=== PATIENT | male | born 1990 | race American Indian/Alaskan Native ===

== ENCOUNTER 2016-11-20 07:00 | Emergency (ER) | payer SELFPAY ==
[2016-11-20 07:40] VITALS: BP 116/72
[2016-11-20] MEDS ORDERED: BICILLIN L-A IM ONE (08:24)
--- NOTE | 2016-11-20 08:29 | Emergency Department Report ---
ED ENT HPI - General Chief complaint: Dental/Oral Stated complaint: TOOTHACHE Time Seen by Provider: 11/20/16 08:10 Source: patient Mode of arrival: Ambulatory Limitations: No Limitations - History of Present Illness MD complaint: tooth pain -: Sudden Location: other (lower molar) Quality: aching Consistency: constant Improves with: none Worsens with: eating Context- Dental: history of dental caries, other (tem filling while in longterm in jul) Associated Symptoms: fever (low grade), gum swelling, toothache. denies: cough , pain with swallowing, sore throat, tinnitus, hearing loss, discharge from ear , rhinorrhea - Related Data Previous Rx's Medication Instructions Recorded Last Taken Type Amoxicillin 500 mg PO BID #20 capsule 11/20/16 Unknown Rx traMADol [Ultram] 50 mg PO Q6HR PRN #12 tablet 11/20/16 Unknown Rx Allergies Allergy/AdvReac Type Severity Reaction Status Date / Time shellfish derived Allergy Swelling Verified 11/20/16 07:37 ED Dental HPI - General Chief complaint: Dental/Oral Stated complaint: TOOTHACHE Time Seen by Provider: 11/20/16 08:10 Source: patient Mode of arrival: Ambulatory Limitations: No Limitations - Related Data Previous Rx's Medication Instructions Recorded Last Taken Type Amoxicillin 500 mg PO BID #20 capsule 11/20/16 Unknown Rx traMADol [Ultram] 50 mg PO Q6HR PRN #12 tablet 11/20/16 Unknown Rx Allergies Allergy/AdvReac Type Severity Reaction Status Date / Time shellfish derived Allergy Swelling Verified 11/20/16 07:37 ED Review of Systems ROS: Stated complaint: TOOTHACHE Other details as noted in HPI Comment: All other systems reviewed and negative Constitutional: no symptoms reported Eyes: as per HPI ENT: as per HPI, dental pain (numerous fillings r lower molar area. no ludwigs. no abscess. mild fever. recent temp filling. has not fu w dmd). denies: ear pain, throat pain, hearing loss, epistaxis Respiratory: no symptoms reported Cardiovascular: as per HPI Endocrine: no symptoms reported Gastrointestinal: as per HPI Genitourinary: as per HPI Musculoskeletal: as per HPI Skin: as per HPI Neurological: as per HPI Psychiatric: as per HPI Hematological/Lymphatic: as per HPI ED Past Medical Hx - Past Medical History Previous Medical History?: No - Surgical History Past Surgical History?: No - Social History Smoking Status: Former Smoker Substance Use Type: Alcohol - Medications Home Medications: Home Medications Medication Instructions Recorded Confirmed Last Taken Type Amoxicillin 500 mg PO BID #20 capsule 11/20/16 Unknown Rx traMADol [Ultram] 50 mg PO Q6HR PRN #12 tablet 11/20/16 Unknown Rx ED Physical Exam - General Limitations: No Limitations - Head Head exam: Present: atraumatic - Eye Eye exam: Present: normal appearance Pupils: Present: normal accommodation - ENT ENT exam: Present: normal exam, normal orophraynx, mucous membranes moist, other (dental caries r lower. no ludwigs no abscress) - Neck Neck exam: Present: normal inspection - Respiratory Respiratory exam: Present: normal lung sounds bilaterally - Cardiovascular Cardiovascular Exam: Present: regular rate, normal rhythm, tachycardia (mild w mild fever) - GI/Abdominal GI/Abdominal exam: Present: soft - Rectal Rectal exam: Present: deferred - Extremities Exam Extremities exam: Present: normal inspection - Back Exam Back exam: Present: normal inspection - Neurological Exam Neurological exam: Present: alert, altered, oriented X3 - Psychiatric Psychiatric exam: Present: normal affect ED Course Vital Signs 11/20/16 07:38 Temperature 99.7 F H Pulse Rate 93 H Respiratory 16 Rate Blood Pressure 116/72 O2 Sat by Pulse 100 Oximetry ED Medical Decision Making - Medical Decision Making known dental caries temp filling w no follow up r molar, 3 noted fillings no abscess no ludwigs mild fever and hr 93 non toxic appearing discussed dmd IM bicillin and toradol for pain/fever HR on exam 90. Critical care attestation.: If time is entered above; I have spent that time in minutes in the direct care of this critically ill patient, excluding procedure time. ED Disposition Clinical Impression: Dental caries Disposition: DISCHARGED TO HOME OR SELFCARE Is pt being admited?: No Does the pt Need Aspirin: No Condition: Stable Instructions: Dental Caries (ED), Toothache (ED) Additional Instructions: med as ordered today follow up dmd laurent motrin and or tylenol for fever or pain Referrals: PRIMARY CARE,MD [Primary Care Provider] - 3-5 Days [facility]Outside] - 3-5 Days Time of Disposition: 08:29
[2016-11-20] MEDS ORDERED: ULTRAM ONE (08:47)
[2016-11-20] MEDS ORDERED: ULTRAM PO ONE (08:55)
[2016-11-20] MEDS ORDERED: TORADOL PO ONE (09:00)
== END 2016-11-20 09:11 | disposition home or self-care (01) ==
LOC: ED 07:00
DX: K02.9 Dental caries, unspecified (principal); Z87.891 Personal history of nicotine dependence; Z91.013 Allergy to seafood
CPT/HCPCS: 96372; 99282; J0561